=== PATIENT | female | born 1990 | race Caucasian/White ===

== ENCOUNTER 2017-05-01 10:29 | Emergency (ER) | payer OTHER | END 2017-05-01 12:27 | disposition home or self-care (01) | LOC: ER 10:29 | DX: L55.9 Sunburn, unspecified (principal); R60.9 Edema, unspecified; F17.210 Nicotine dependence, cigarettes, uncomplicated; X32.XXXA Exposure to sunlight, initial encounter | CPT/HCPCS: 36415 ==